=== PATIENT | male | born 1960 | race Caucasian/White ===

== ENCOUNTER → 2022-01-31 | Outpatient (CLI) | payer BC ==
[2022-01-31 15:01] VITALS: BP 135/83; PULSE 85; TEMP 98.1; BMI 37.7
--- NOTE | 2022-02-01 15:59 | P.HPBAR ---
Bariatric H&P - History & Physicial H&P Date: 01/31/22 History & Physicial: Visit/CC: reflux Patient initial contact: Initial weight: Initial weight in pounds: Height: 6 ft Initial BMI: Last weight: Current weight: 126.099 kg Current weight in pounds: 278.00 Current BMI: 37.7 [place] body weight (based on NIH guidelines): 80.739 kg Excess body weight loss: The patient is a 61 year-old M who presents for Bariatric Assessment. Patient has complaints of GERD. He's not seen in several years. His current weight is 278 pounds. Past Medical History Past Medical History: GERD/Reflux Additional Past Medical History / Comment(s): neuropathy in feet History of Any Multi-Drug Resistant Organisms: None Reported Past Surgical History: Bariatric Surgery Additional Past Surgical History / Comment(s): carpal tunnel surgery, lap band converted to gastric sleeve 2013, neck fusion 2016 Past Anesthesia/Blood Transfusion Reactions: No Reported Reaction Past Psychological History: No Psychological Hx Reported Smoking Status: Former smoker Past Alcohol Use History: None Reported Past Drug Use History: None Reported Surgical - Exam Vital Signs Temp Pulse BP 98.1 F 85 135/83 01/31/22 14:57 01/31/22 14:57 01/31/22 14:57 - General well developed, well nourished, no distress - Eyes PERRL - ENT normal pinna - Neck no masses - Respiratory normal expansion - Cardiovascular Rhythm: regular - Abdomen Abdomen: soft, non tender Bariatric Assessment & Plan Plan: GERD. Patient is scheduled for esophagram and EGD. He'll follow-up in clinic after this was performed. We will continue taking Prilosec. Bariatric Checklist Checklist: Plan: Checklist: EGD: 1. Hiatal hernia: 2. H. Pylori: HgbA1c: Vitamin D: Smoking: Primary care physician referral: Dr. Waterman Psychiatry clearance: Cardiology clearance: Sleep study: Diet journal: VTE risk score: VTE risk level: Rehab needs at discharge:
== END ==
LOC: BARWHC3 14:39
PROVIDERS: ATTEND Surgery
DX: K21.9 Gastro-esophageal reflux disease without esophagitis (principal); Z98.84 Bariatric surgery status; Z87.891 Personal history of nicotine dependence
CPT/HCPCS: 99211

== ENCOUNTER → 2022-02-11 | Outpatient (CLI) | payer BC ==
--- NOTE | 2022-02-11 10:09 | FL ---
EXAMINATION TYPE: FL barium swallow DATE OF EXAM: 02/11/2022 LIMITED UGI: CLINICAL HISTORY: History of lap band for 5 to 6 years converted to gastric sleeve 8 years ago with worsening epigastric pain and reflux-like symptoms. Patient been on long-term antireflux medication TECHNIQUE: Limited esophagram is performed utilizing barium. A total of 84 seconds of fluoroscopic t deja was utilized during procedure and 47 images obtained. COMPARISON: None. FINDINGS: The patient swallowed contrast without difficulty or delay. Incidental note is made of ant erior fusion plate in the lower cervical spine. There is mild to moderate delayed emptying worse duri ng prone drinking with poor peristalsis. No proximal diverticulum. No focal stricture. A small slidin g-type hiatal hernia is present. There is good flow of contrast along the diaphragmatic hiatus into p roximal stomach and subsequent flow into gastric sleeve through the proximal anastomosis. Visualized portion of sleeve is unremarkable. Patient remains asymptomatic. IMPRESSION: Utig-da-jafdndbz esophageal dysmotility. Small sliding-type hiatal hernia.
== END | disposition home or self-care (01) ==
LOC: RADUSWWP 08:56
PROVIDERS: ATTEND Surgery
DX: K21.9 Gastro-esophageal reflux disease without esophagitis (principal); K44.9 Diaphragmatic hernia without obstruction or gangrene
CPT/HCPCS: 74220

== ENCOUNTER → 2022-05-09 | Outpatient (CLI) | payer BC ==
[2022-05-09 13:12] VITALS: BP 133/82; PULSE 93; RESP 16; TEMP 98.2; BMI 37.7
--- NOTE | 2022-06-06 13:32 | P.HPBAR ---
Bariatric H&P - History & Physicial H&P Date: 05/09/22 History & Physicial: Visit/CC: Sleeve f/u Patient initial contact: Initial weight: Initial weight in pounds: Height: 6 ft Initial BMI: Last weight: Current weight: 126.099 kg Current weight in pounds: 278.00 Current BMI: 37.7 [place] body weight (based on NIH guidelines): 80.739 kg Excess body weight loss: The patient is a 62 year-old M who presents for Bariatric Assessment. Patient presents today for bariatric follow-up. He's had some mild GERD. His weight has been stable. Past Medical History Past Medical History: GERD/Reflux Additional Past Medical History / Comment(s): neuropathy in feet History of Any Multi-Drug Resistant Organisms: None Reported Past Surgical History: Bariatric Surgery Additional Past Surgical History / Comment(s): carpal tunnel surgery, lap band converted to gastric sleeve 2013, neck fusion 2016 Past Anesthesia/Blood Transfusion Reactions: No Reported Reaction Past Psychological History: No Psychological Hx Reported Smoking Status: Former smoker Past Alcohol Use History: None Reported Past Drug Use History: None Reported Surgical - Exam Vital Signs Temp Pulse Resp BP 98.2 F 93 16 133/82 05/09/22 13:09 05/09/22 13:09 05/09/22 13:09 05/09/22 13:09 - General well developed, well nourished, no distress - Eyes PERRL - ENT normal pinna - Neck no masses - Respiratory normal expansion - Cardiovascular Rhythm: regular - Abdomen Abdomen: soft, non tender Bariatric Assessment & Plan Plan: Morbid obesity. Patient's GERD which is omeprazole. He'll follow-up in 4 weeks. Bariatric Checklist Checklist: Plan: Checklist: EGD: 1. Hiatal hernia: 2. H. Pylori: HgbA1c: Vitamin D: Smoking: Primary care physician referral: Dr. Waterman Psychiatry clearance: Cardiology clearance: Sleep study: Diet journal: VTE risk score: VTE risk level: Rehab needs at discharge:
== END ==
LOC: BARWHC3 12:54
PROVIDERS: ATTEND Surgery
DX: Z48.815 Encounter for surgical aftercare following surgery on the digestive system (principal); E66.01 Morbid (severe) obesity due to excess calories; Z98.84 Bariatric surgery status; Z68.37 Body mass index [BMI] 37.0-37.9, adult
CPT/HCPCS: 99211